=== PATIENT | male | born 1935 | race Caucasian/White ===

== ENCOUNTER 2019-03-19 08:03 | Day surgery (SDC) | payer MEDICARE, OTHER ==
[~2019-03-19 08:03] MED LIST: DOXYCYCLINE HYCLATE 100 MG in DEXTROSE 5%-WATER 250 ML IV PRN; LIDOCAINE 1%/EPINEPHRINE INJ 20 ML VIAL ONE; POVIDONE-IODINE 5% OPH PREP SOLN 30 ML ONE; SODIUM BICARBONATE 4.2% INJ (2.5 MEQ/5 ML) VIAL ONE
[2019-03-19 09:05] LABS: INTERNATIONAL RATION (INR) 1.06; PARTIAL THROMBOPLASTIN TIME 29.9 SEC (23.5-35.8); PROTHROMBIN TIME 13.8 SEC (11.4-15.4)
[2019-03-19] MEDS ORDERED: PROPOFOL INJ 200 MG/20 ML VIAL IV ONE (09:26)
[2019-03-19] MEDS ORDERED: FENTANYL CITRATE INJ/PF 100 MCG/2 ML AMPUL ONE (09:26)
[2019-03-19] MEDS ORDERED: ONDANSETRON HCL INJ/PF 4 MG/2 ML SDV ONE (10:12)
--- NOTE | 2019-03-19 11:10 | Operative Report ---
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 Patient was brought into the operating room and placed on the operating room table in a sloppy lateral position. Patient was then prepped with a Betadine scrub and Betadine solution and draped in a sterile and aseptic manner. The area was then marked. 12 O'clock was marked towards the cheek 3 O'clock was marked towards the mandibular margin 6:00 was marked towards the posterior scalp 9:00 was marked towards the superior scalp The area was then anesthetized with 1% lidocaine with epinephrine and bicarbonate for its anesthetic and hemostatic effects. The area was then excised and marked at 12:00. The specimen was sent for frozen section. The results came back that the deep and lateral margins were free. We had considered a primary closure but this would go against the natural relaxed skin tension lines. A primary closure would be too tight and would have increased chance of dehiscence. This will leave more of a scar so we decided to use a rotation flap reconstruction which would camouflage the scar better and take tension off of the closure so that would be less chances of complications. We decided to use the rotation because this would allow us to bring some tissue in from the neck region where there was some laxity. The area that we were working there was no laxity and therefore with the rotation flap we were to bring skin into the area in order to obtain a tension- free closure. This would also allow us to put the scar with his natural horizontal wrinkles. Then we went ahead and outlined the flap and anesthetized it. We then incised the flap and developed a flap maintaining the subdermal plexus. Then we undermined 360 to allow for plate like scarring and minimize trap door deformity. Throughout the case hemostasis was achieved with the bipolar. We then sutured the flap into its new position using 4-0 Vicryl for the subcutaneous and deep dermis. Skin was closed with a running subcuticular suture stitch using 4-0 PDS with knots being tied on the outside. And 4-0 PDS suture was used for support and placed in the central area of the incision. We then applied tincture benzoin and Steri-Strips followed by a light pressure dressing. Patient was then reversed from anesthesia and taken to the [facility] for recovery. The patient tolerated well. There were no complications. Lesion size was approximately 1.7 cm see pathology for actual size. Portions of this note may be dictated using Ocelus voice recognition software. Occasional variations and spelling and vocabulary could be possible and are unintentional. Additionally, there is a chance that some errors may not be caught or corrected. Please notify the author of any discrepancies noted or if any statements are unclear. Subjective: No complaints Objective: Vital signs stable afebrile No bleeding Dressing intact Assessment and plan: Doing well. Elevate the operative site. Resume medications. Take antibiotics for 1 day Follow-up Full instructions were given to the patient and family and they understand Portions of this note may be dictated using Ocelus voice recognition software. Occasional variations and spelling and vocabulary could be possible and are unintentional. Additionally, there is a chance that some errors may not be caught or corrected. Please notify the offer of any discrepancies noted or if any statements are unclear.
--- NOTE | 2019-03-19 11:12 | Discharge Summary ---
Discharge Summary (SDC) - Discharge Final Diagnosis: Basal cell carcinoma of the right post auricular Date of Surgery: 03/19/19 Condition: Good Treatment or Instructions: Leave the top dressing on for 2 days, then removed. Leave the steri-strip tapes on for 5 days, then removal. Then cleaning wound with peroxide and apply Neosporin/bacitracin 3 times per day. Antibiotics for 1 day, then discontinue. Elevate operative area to decrease swelling. Do not strain, or lift heavy objects. Call for excessive bleeding, increased temperature of 101, uncontrolled pain, or excessive nausea or vomiting. You may reach Dr. Loya through his office at [phone]. In the event of an emergency after hours, then contact Dr. Loya through [facility]. Return to the office for a postop check on . The time will be scheduled by the nursing staff of [facility] prior to discharge. Please give the patient a copy of their labs and EKG so they can bring this to their PMD. Thank you Portions of this note may be dictated using Livescribe voice recognition software. Occasional variations and spelling and vocabulary could be possible and are unintentional. Additionally, there is a chance that some errors may not be caught or corrected. Please notify the offer of any discrepancies noted or if any statements are unclear. Referrals: JOSY CUEVAS NP [Primary Care Provider] - Discharge Diet: As Tolerated Discharge Activity: No Lifting/Push/Pulling Report the Following to Your Physician Immediately: Fever over 101 Degrees, Unusual Bleeding - Keep head elevated. Do not twist or bend the neck.
[2019-03-19 13:03] VITALS: BP 168/83
--- NOTE | 2019-03-19 20:56 | EKG REPORT ---
SEVERITY:- ABNORMAL ECG - SINUS RHYTHM INCOMPLETE RIGHT BUNDLE BRANCH BLOCK LEFT VENTRICULAR HYPERTROPHY : Confirmed by: Marie Burnham MD 19-Mar-2019 20:55:11
== END 2019-03-19 12:10 | disposition home or self-care (01) ==
LOC: OROUT 08:03
PROVIDERS: ATTEND Plastic Surgery
DX: C44.212 Basal cell carcinoma of skin of right ear and external auricular canal (principal); I10 Essential (primary) hypertension; E11.9 Type 2 diabetes mellitus without complications; I25.2 Old myocardial infarction; Z87.891 Personal history of nicotine dependence; Z79.01 Long term (current) use of anticoagulants; Z79.899 Other long term (current) drug therapy; Z79.82 Long term (current) use of aspirin; Z79.02 Long term (current) use of antithrombotics/antiplatelets; Z79.84 Long term (current) use of oral hypoglycemic drugs
CPT/HCPCS: 36415; 82947; 85610; 85730; 88305 ×2; 88331 ×2; 93005; 93010; 14060; J3490 ×3; J2405; J7060; J2704; J3010

== ENCOUNTER → 2020-07-30 | Outpatient (CLI) | payer MEDICARE, OTHER ==
--- OUTSIDE RECORDS SUMMARY | 2020-07-30 08:42 | XMS REPORT ---
:1935 Author [facility] [place] [address] [place] [address] Care Team Providers Name Role Phone Juan Manuel CUEVAS Primary Care Physician Unavailable Allergies, Adverse Reactions, Alerts Allergy Name Allergy Status Severity Reaction(s) Onset Inactive Treat ing Comments Type Date Date Clinician LISINOPRIL LISINOPRIL Active Review Dt: 03/06/201903-10 00:00: 00 MORPHINE MORPHINE Active Review Dt: 03/06/201903-10 00:00: 00 Lisinopril Allergy to Active substance Morphine Allergy to Active substance Medications Ordered Filled Start Stop Current Ordering Indication Dosage Frequency Signature Comments Components Medication Medication Date Date Medication? Clinician (SIG) Name Name Zolpidem 2019-0 Yes Tartrate 5 9-18 MG 00:00: 00 Cilostazol 2019-0 Yes 100 MG 9-18 00:00: 00 Crestor 10 2019-0 Yes MG 9-18 00:00: 00 Janumet 2019-0 Yes 50-1000 MG 9-18 00:00: 00 Losartan 2019-0 Yes Potassium 9-18 25 MG 00:00: 00 Clopidogrel 2019-0 Yes Bisulfate 9-18 75 MG 00:00: 00 Metoprolol 2019-0 Yes Succinate 9-18 ER 50 MG 00:00: 00 GlipiZIDE 2019-0 Yes ER 2.5 MG 18 00:00: 00 Glucotrol Yes XL Aciphex Yes cilostazol No 1 BID cilostazol 100 mg 100 mg tablet Take tablet 1 tablet Take 1 twice a day tablet by oral twice a route with day by meals for oral route 30 days. with meals for 30 days. clopidogrel No clopidogre 75 mg l 75 mg tablet tablet Crestor 10 No Crestor 10 mg tablet mg tablet ergocalcife No ergocalcif rol manolo (vitamin (vitamin D2) 50,000 D2) 50,000 unit unit capsule capsule glipizide No glipizide ER 2.5 mg ER 2.5 mg tablet, tablet, extended extended release 24 release 24 hr hr Janumet 50 No Janumet 50 mg-1,000 mg mg-1,000 tablet Take mg tablet 1 tablet Take 1 twice a day tablet by oral twice a route for day by 30 days. oral route for 30 days. losartan 25 No losartan mg tablet 25 mg tablet metoprolol No metoprolol succinate succinate ER 50 mg ER 50 mg tablet,exte tablet,ext nded ended release 24 release 24 hr hr Pazeo 0.7 % No Pazeo 0.7 eye drops % eye drops rabeprazole No rabeprazol 20 mg e 20 mg tablet,jose tablet,del yed release ayed release Refresh No Refresh Classic Classic (PF) 1.4 (PF) 1.4 %-0.6 % eye %-0.6 % drops in a eye drops dropperette in a dropperett e TobraDex No TobraDex 0.3 %-0.1 % 0.3 %-0.1 eye % eye ointment ointment zolpidem 5 No zolpidem 5 mg tablet mg tablet doxycycline No doxycyclin hyclate 100 e hyclate mg tablet 100 mg tablet hydrocodone No hydrocodon 5 e 5 mg-acetamin mg-acetami ophen 325 nophen 325 mg tablet mg tablet Vitamin No Vitamin B-12 1,000 B-12 1,000 mcg tablet mcg tablet Problems Condition Condition Condition Status Onset Resolution Last Treatin g Comments Name Details Category Date Date Treatment Clinician Date Peripheral Peripheral Problem Active arterial arterial 9-01 disease disease 00:00: 00 Malignant Malignant Problem Active tumor of neoplasm of 3-02 lung unsp part 00:00: of unsp 00 bronchus or lung Chronic Chronic Problem Active obstructive Obstructive 8-28 lung Lung 00:00: disease Disease 00 Lymphadenop Lymphadenop Problem Active athy athy 2- 00:00: 00 History of History of Problem Active malignant Malignant 2- neoplasm of Neoplasm of 00:00: lung Lung 00 Aneurysm of Aneurysm of Problem Active thoracic Thoracic aorta Aorta Multiple Multiple Problem Active nodules of Nodules of lung Lung Procedures Procedure Date / Time Performed Performing Clinician Devic e EXTREMITY STUDY 2020-03-10 00:00:00 Video-assisted Thoracoscopic 2016-10-06 00:00:00 Surgery, Lobectomy (Surg) Appendectomy Other Results This patient has no known results. Assessments Condition Name Status Diagnosis Date Treating Clinici an - Peripheral arterial disease I73.9 Active ZEENAT ZAMBRANO - History of lung cancer Z85.118 Active JOSELUIS, ALLEN - Lung nodule < 6cm on CT R91.1 Active JOSELUIS, ALLEN - Chronic obstructive pulmonary Active JOSELUIS, ALLEN disease, unspecified COPD type J44.9 - Malignant neoplasm of unsp part of Active ISAIAH ABNER unsp bronchus or lung C34.90 - Thoracic aortic aneurysm, without Active ISAIAH, ABNER rupture I71.2 - Chronic obstructive pulmonary Active ISAIAH, ABNER disease, unspecified J44.9 - Other nonspecific abnormal finding Active ISAIAH ABNER of lung field R91.8 - Personal history of malignant Active ISAIAH ABNER neoplasm of bronchus and lung Z85.118 History of malignant neoplasm of lung Active 2019-03-27 11:23:40 Multiple nodules of lung Active 2019-03-27 11:23:45 Chronic obstructive lung disease Active 2019-03-27 11:2 3:48 Aneurysm of thoracic aorta Active 2019-03-27 11:31:45 - Chronic obstructive pulmonary Active ISAIAH, ABNER disease, unspecified J44.9 - Localized enlarged lymph nodes R59.0 Active ISAIAH ABNER - Solitary pulmonary nodule R91.1 Active ISAIAH, ABNER - Other nonspecific abnormal finding Active ISAIAH ABNER of lung field R91.8 - Personal history of malignant Active ISAIAH ABNER neoplasm of bronchus and lung Z85.118 History of malignant neoplasm of lung Active 2019-03-06 13:56:39 Multiple nodules of lung Active 2019-03-06 13:56:40 Lymphadenopathy Active 2019-03-06 13:58:28 Chronic obstructive lung disease Active 2019-03-06 13:5 9:09 - Peripheral vascular disease, Active M igration, Provider unspecified I73.9 Peripheral vascular disease Active 2019-03-04 11:07:41 Peripheral arterial occlusive disease Active 2019-03-04 11:30:49 - Malignant neoplasm of unsp part of Active Migration, Provider unsp bronchus or lung C34.90 - Localized enlarged lymph nodes R59.0 Active JOSELUIS, ALLEN - Personal history of malignant Active JOSELUIS, ALLEN neoplasm of bronchus and lung Z85.118 History of malignant neoplasm of lung Active 2018-08-22 11:54:19 Lymphadenopathy Active 2018-08-26 08:16:08 - Malignant neoplasm of unsp part of Active Migration, Provider unsp bronchus or lung C34.90 - Peripheral vascular disease, Active M igration, Provider unspecified I73.9 Peripheral vascular disease Active 2018-02-27 15:28:35 - Thoracic aortic aneurysm, without Active ISAIAH ABNER rupture I71.2 - Localized enlarged lymph nodes R59.0 Active ISAIAH ABNER - Other nonspecific abnormal finding Active ISAIAH ABNER of lung field R91.8 - Personal history of malignant Active ISAIAH ABNER neoplasm of bronchus and lung Z85.118 History of malignant neoplasm of lung Active 2018-02-16 11:29:54 Multiple nodules of lung Active 2018-02-16 11:30:22 Aneurysm of thoracic aorta Active 2018-02-16 11:30:23 Lymphadenopathy Active 2018-02-16 11:30:25 - Malignant neoplasm of unsp part of Active Migration, Provider unsp bronchus or lung C34.90 - Localized enlarged lymph nodes R59.0 Active JOSELUIS, ALLEN - Personal history of malignant Active JOSELUIS, ALLEN neoplasm of bronchus and lung Z85.118 - Solitary pulmonary nodule R91.1 Active Migration, Provider - Localized enlarged lymph nodes R59.0 Active JOSELUIS, ALLEN - Other nonspecific abnormal finding Active JOSELUIS, ALLEN of lung field R91.8 - Personal history of malignant Active JOSELUIS, ALLEN neoplasm of bronchus and lung Z85.118 - Malignant neoplasm of unsp part of Active Migration, Provider unsp bronchus or lung C34.90 - Localized enlarged lymph nodes R59.0 Active JOSELUIS, ALLEN - Personal history of malignant Active JOSELUIS, ALLEN neoplasm of bronchus and lung Z85.118 - Solitary pulmonary nodule R91.1 Active Migration, Provider - Other nonspecific abnormal finding Active Migration, Provider of lung field R91.8 - Peripheral vascular disease, Active M igration, Provider unspecified I73.9 - Malignant neoplasm of unsp part of Active JOSELUIS, ALLEN unsp bronchus or lung C34.90 - Malignant neoplasm of unsp part of Active ISAIAH, ABNER unsp bronchus or lung C34.90 - Peripheral vascular disease, Active C ORTINA, ABNER unspecified I73.9 - Solitary pulmonary nodule R91.1 Active ABNER DUNBAR - Other nonspecific abnormal finding Active ABNER DUNBAR of lung field R91.8 - Solitary pulmonary nodule R91.1 Active Migration, Provider - Type 2 diabetes mellitus without Active Migration, Provider complications E11.9 - Thoracic aortic aneurysm, without Active Migration, Provider rupture I71.2 - Peripheral vascular disease, Active M igration, Provider unspecified I73.9 - Other nonspecific abnormal finding Active Migration, Provider of lung field R91.8 - Thoracic aortic aneurysm, without Active Migration, Provider rupture I71.2 - Thoracic aortic aneurysm, without Active Migration, Provider rupture I71.2 - Peripheral vascular disease, Active M igration, Provider unspecified I73.9 - Other nonspecific abnormal finding Active Migration, Provider of lung field R91.8 - Thoracic aortic aneurysm, without Active Migration, Provider rupture I71.2 - Thoracic aortic aneurysm, without Active Migration, Provider rupture I71.2 Encounters Start End Encounter Admission Attending Care Care Encounter Date/Time Date/Time Type Type Clinicians Facility Department ID 2021-03-29 2021-03-29 [facility] [id number] 00:00:00 00:00:00 [facility] Malina CASTAÑEDA 2021-03-29 2021-03-29 [facility] [id number] 00:00:00 00:00:00 [facility] Malina CASTAÑEDA 2020-03-10 2020-03-10 [facility] [id number] 00:00:00 00:00:00 [facility] Malina CASTAÑEDA 2020-03-10 2020-03-10 [facility] [id number] 00:00:00 00:00:00 Kassandra CASTAÑEDA 2019-09-27 2019-09-27 [facility] [id number] 00:00:00 00:00:00 [facility] Malina CASTAÑEDA 2019-09-09 2019-09-09 [facility] [id number] 00:00:00 00:00:00 [facility] Malina CASTAÑEDA 2019-05-05 2019-05-05 [facility] [id number] 00:00:00 00:00:00 [facility] 2019-05-04 2019-05-04 [facility] [id number] 00:00:00 00:00:00 [facility] 2019-03-27 2019-03-27 [facility] 1341 [id number] 00:00:00 00:00:00 [facility] 00854 Malina Dunbar MD: [address] [place] [phone], Ph. 2019-03-27 2019-03-27 [facility] [id number] 00:00:00 00:00:00 [facility] 2019-03-22 2019-03-22 [facility] [id number] 00:00:00 00:00:00 [facility] 2019-03-06 2019-03-06 [facility] 1341 [id number] 00:00:00 00:00:00 [facility] [id number] Malina Dunbar MD: [address] [place] [phone], Ph. 2019-03-06 2019-03-06 [facility] [id number] 00:00:00 00:00:00 [facility] 2019-03-04 2019-03-04 Chai Carey [facility] 1 [id number] 00:00:00 00:00:00 [facility] [id number] PA-C: [address] [place] [phone], Ph. 2019-03-04 2019-03-04 [facility] [id number] 00:00:00 00:00:00 [facility] 2019-03-04 2019-03-04 [facility] [id number] 00:00:00 00:00:00 [facility] 2019-02-18 2019-02-18 [facility] [id number] 00:00:00 00:00:00 [facility] 2018-08-22 2018-08-22 [facility] [id number] 00:00:00 00:00:00 [facility] 2018-08-22 2018-08-22 Allen Akira [facility] [id number] 00:00:00 00:00:00 Joseluis, [facility] [id number] PA-Lobito: [address] [place] [phone], Ph. 2018-07-31 2018-07-31 [facility] [id number] 00:00:00 00:00:00 [facility] 2018-02-27 2018-02-27 [facility] [id number] 00:00:00 00:00:00 [facility] 2018-02-27 2018-02-27 [facility] [id number] 00:00:00 00:00:00 [facility] 2018-02-27 2018-02-27 Kayden [facility] 1341 [id number] 00:00:00 00:00:00 Navin [facility] [id number] MD Joseph: [address] [phone], Ph. 2018-02-16 2018-02-16 [facility] [id number] 00:00:00 00:00:00 [facility] 2018-02-16 2018-02-16 Abner [facility] 1341 [id number] 00:00:00 00:00:00 [facility] [id number] Malina Dunbar MD: [address] [place] [phone], Ph. 2018-01-29 2018-01-29 [facility] [id number] 00:00:00 00:00:00 [facility] 2017-09-13 2017-09-13 [facility] [id number] 00:00:00 00:00:00 [facility] 2017-08-31 2017-08-31 [facility] [id number] 00:00:00 00:00:00 [facility] 2017-08-29 2017-08-29 [facility] [id number] 00:00:00 00:00:00 [facility] 2017-08-14 2017-08-14 [facility] [id number] 00:00:00 00:00:00 [facility] 2017-06-06 2017-06-06 [facility] [id number] 00:00:00 00:00:00 [facility] 2017-05-18 2017-05-18 [facility] [id number] 00:00:00 00:00:00 [facility] 2017-05-16 2017-05-16 [facility] [id number] 00:00:00 00:00:00 [facility] 2017-02-21 2017-02-21 [facility] [id number] 00:00:00 00:00:00 [facility] 2017-02-21 2017-02-21 [facility] [id number] 00:00:00 00:00:00 [facility] 2016-12-27 2016-12-27 [facility] [id number] 00:00:00 00:00:00 [facility] 2016-11-29 2016-11-29 [facility] [id number] 00:00:00 00:00:00 [facility] 2016-10-18 2016-10-18 [facility] [id number] 00:00:00 00:00:00 [facility] 2016-10-03 2016-10-03 [facility] [id number] 00:00:00 00:00:00 [facility] 2016-08-30 2016-08-30 [facility] [id number] 00:00:00 00:00:00 [facility] 2016-08-19 2016-08-19 [facility] [id number] 00:00:00 00:00:00 [facility] 2016-08-16 2016-08-16 [facility] [id number] 00:00:00 00:00:00 [facility] 2016-08-16 2016-08-16 [facility] [id number] 00:00:00 00:00:00 [facility] 2016-08-15 2016-08-15 [facility] [id number] 00:00:00 00:00:00 [facility] 2015-08-11 2015-08-11 [facility] [id number] 00:00:00 00:00:00 [facility] 2015-08-11 2015-08-11 [facility] [id number] 00:00:00 00:00:00 [facility] 2015-08-10 2015-08-10 [facility] [id number] 00:00:00 00:00:00 [facility] 2015-08-06 2015-08-06 [facility] [id number] 00:00:00 00:00:00 [facility] Social History Smoking Status Start Date Stop Date Former Smoker Vital Signs Vital Name Observation Time Observation Value Comments temperature 2020-03-10 14:00:00 98.0 [degF] heart rate 2020-03-10 14:00:00 65 /min weight 2020-03-10 14:00:00 182 [lb_av] bmi 2020-03-10 14:00:00 27.67 kg/m2 height 2020-03-10 14:00:00 68 [in_us] respiratory rate 2020-03-10 14:00:00 14 /min blood pressure systolic 2020-03-10 14:00:00 148 mm[Hg] blood pressure diastolic 2020-03-10 14:00:00 74 mm[Hg] Height 2019-03-27 00:00:00 68 [in_i] BMI (Body Mass Index) 2019-03-27 00:00:00 27.4 kg/m2 Body Weight 2019-03-27 00:00:00 180 [lb_av] BP Diastolic 2019-03-04 00:00:00 63 mm[Hg] Height 2019-03-04 00:00:00 68 [in_i] BP Systolic 2019-03-04 00:00:00 149 mm[Hg] Height 2018-02-27 00:00:00 68 [in_i] Hospital Discharge Instructions 1. Peripheral vascular disease peripheral arterial disease of the leg: care instructions cilostazol 100 mg tablet 2. Peripheral arterial occlusive disease Discussion Note: None recorded.
--- NOTE | 2020-07-30 10:25 | RADIOLOGY REPORT (SQ) ---
EXAM DESCRIPTION: CT CHEST WITHOUT IMAGES COMPLETED DATE/TIME: 07/30/2020 8:54 am REASON FOR STUDY: LUNG CANCER C34.2 MALIGNANT NEOPLASM OF MIDDLE LOBE, BRONCHUS OR LUNG COMPARISON: 12/11/2013 TECHNIQUE: CT scan performed of the chest without intravenous contrast. Images reviewed with lung, soft tissue and bone windows. Reconstructed coronal and sagittal MPR images reviewed. All images st ored on PACS. All CT scanners at this facility use dose modulation, iterative reconstruction, and/or weight based d osing when appropriate to reduce radiation dose to as low as reasonably achievable (ALARA). [facility]: Dose Right [facility]: CareDose [facility]: Dose Right [facility]: Teradose 4D [facility]: Smart [employer] RADIATION DOSE: CT Rad equipment meets quality standard of care and radiation dose reduction techniq ues were employed. CTDIvol: 8.6 mGy. DLP: 344 mGy-cm. mGy. LIMITATIONS: No technical limitations. FINDINGS: LUNGS AND PLEURA: Interval postsurgical changes of the left upper lobe. A 9 x 4 x 3 mm ri ght lower lobe subpleural pulmonary nodule (axial image 93, coronal reformat 62) is retrospectively p resent on comparison imaging (although poorly characterized due to patient motion artifact). No sign ificant change in size or imaging characteristics. Stable background of paraseptal emphysematous amber nges. HILAR AND MEDIASTINAL STRUCTURES: Scattered mediastinal lymph nodes are stable in size and imaging ch aracteristics. No mass. HEART AND VASCULAR STRUCTURES: Ascending aortic aneurysm with ectatic thoracic aorta demonstrating de nse calcifications. Marked three-vessel coronary artery disease. No pericardial effusion. UPPER ABDOMEN: No acute findings. Limited exam. Incidental note is made of marked fatty atrophy of the pancreas. THYROID AND OTHER SOFT TISSUES: No masses. No adenopathy. BONES: No significant finding. HARDWARE: None in the chest. OTHER: No other significant findings. IMPRESSION: Interval postsurgical changes of the left upper lobe. Otherwise stable CT appearance of the chest. No new or suspicious nodule/ mass. No lymphadenopathy. TECHNICAL DOCUMENTATION: JOB ID: [id number] Quality ID # [id number]: Final reports with documentation of one or more dose reduction techniques (e.g., Au tomated exposure control, adjustment of the mA and/or kV according to patient size, use of iterative reconstruction technique) 2010 [employer]- All Rights Reserved Reading location - IP/workstation name: [id number]
== END ==
LOC: RAD 08:39
PROVIDERS: ATTEND Radiology Radiation Oncology
DX: C34.12 Malignant neoplasm of upper lobe, left bronchus or lung (principal); C34.2 Malignant neoplasm of middle lobe, bronchus or lung
CPT/HCPCS: 71250